=== PATIENT | female | born 1985 | race Caucasian/White ===

== ENCOUNTER 2016-11-14 22:29 | Inpatient (IN) | payer OTHER ==
[2016-11-14 23:08] LABS: % IMMATURE GRANULYOCYTES 0.9 % (0.0-1.1); ABSOLUTE IMMATURE GRANULOCYTES 0.08 10^3/uL (0.00-0.10); ABSOLUTE NRBC COUNT 0.02 10^3/uL (0-0.01); ADD DIFF? NO; ADD MORPH? NO; ADD SCAN? NO; ATYPICAL LYMPHOCYTE FLAG 0 (0-99); FRAGMENT RBC FLAG 0 (0-99); HEMATOCRIT 27.5 % (38.0-47.0); HEMOGLOBIN 8.9 g/dL (12.6-16.3); LEFT SHIFT FLG 0 (0-99); LIPEMIA HEMOLYSIS FLAG 80 (0-99); MEAN CELL HEMOGLOBIN 28.8 pg (27.9-34.1); MEAN CELL HEMOGLOBIN CONCENTR. 32.4 g/dL (32.4-36.7); NRBC-AUTO% 0.2 % (0.0-0.2); PLATELET CLUMPS FLAG 0 (0-99); PLATELET COUNT 265 10^3/uL (150-400); RED BLOOD CELL COUNT 3.09 10^6/uL (4.18-5.33); RED CELL DISTRIBUTION WIDTH 13.9 % (11.5-15.2)
[2016-11-14 23:14] LABS: ALANINE AMINOTRANSFERASE 24 IU/L (9-52); ASPARTATE AMINOTRANSFERASE 21 IU/L (14-46); BILIRUBIN,TOTAL 0.4 mg/dL (0.1-1.4); BILIRUBIN-CONJUGATED 0.3 mg/dL (0.0-0.5); BILIRUBIN-UNCONJUGATED 0.1 mg/dL (0.0-1.1); CREATININE 0.7 mg/dL (0.6-1.0); GLOMERULAR FILTRATION RATE > 60; LACTATE DEHYDROGENASE 444 IU/L (313-618); URIC ACID 4.9 mg/dL (2.5-6.8)
[2016-11-15] MEDS ORDERED: OLIVE OIL 118 ML BTL MISC PRN (00:23)
[2016-11-15] MEDS ORDERED: EPSOM SALT 454 GM TP PRN (00:23)
[2016-11-15] MEDS ORDERED: LR 1,000 ML IV PRN (00:23)
[2016-11-15] MEDS ORDERED: OXYTOCIN/RINGERS LACTATE 1,000 ML IV PRN (00:23)
[2016-11-15] MEDS ORDERED: LIDOCAINE 1% 30 ML SDV SC PRN (00:23)
[2016-11-15] MEDS ORDERED: TERBUTALINE SULFATE 1 MG/ML VIAL IV PRN (00:23)
[2016-11-15] MEDS ORDERED: LIDOCAINE 1% 30 ML SDV ONE ×3 (00:46→03:08)
[2016-11-15] MEDS ORDERED: OXYTOCIN 10 UNIT/ML VIAL ONE (00:47)
[2016-11-15] MEDS ORDERED: MISOPROSTOL 200 MCG TAB ONE (00:47)
[2016-11-15] MEDS: MISOPROSTOL 100 MCG TAB PO SCH ×4 (00:51→17:34)
--- NOTE | 2016-11-15 01:33 | GHP ---
[f rep st] PREOP HISTORY AND PHYSICAL DATE OF ADMISSION: 11/14/2016 ADMISSION DIAGNOSES: 1. Intrauterine at 39-1/7 weeks' gestation. 2. Preeclampsia. HISTORY OF PRESENT ILLNESS: The patient is a 31-year-old, 1, para 0, who is 39 weeks' gesta tion who was seen in the office yesterday for a routine OB visit and complained of significant incre ase in edema over the last week. She had blood pressures that were 130s over 80s. Preeclampsia lab s were obtained which were normal, and she is in the process of collecting a 24-hour urine protein. Patient has been checking her blood pressures at home for the last few weeks and her blood pressure s have normally been 120s to 130s over 60s to 70s. She checked her blood pressure tonight because s he was feeling heavy and not quite right, and her blood pressure was 142/85. The patient came in fo r evaluation. Her blood pressure on admission was 141/82. Repeat blood pressures have been high 13 0s over 60s. The patient has been requesting a 24-hour urine protein today and has collected only 2 00 cc total for the entire day. When she arrived to Labor and Delivery, she was only able to void a very small amount and 1+ protein was noted. A long discussion was had with the patient because marlon ravi is past 39 weeks and is having oliguria and 1 elevated blood pressure here and 1 elevated blood pressure at home. Decision was made to admit patient for induction of labor. A cervical exam was performed. Her cervix is long and closed, and she is not a candidate for Bustamante bulb placement, so s he will receive oral Cytotec overnight. PAST MEDICAL HISTORY: Questionable history of polycystic ovarian syndrome. History of pyelonephrit is x2. Psoriasis. MEDICATIONS: vitamins, DHA, metformin. PAST SURGICAL HISTORY: [place] tooth extraction. ALLERGIES: Codeine and erythromycin. SOCIAL HISTORY: The patient is single, but father of the baby is involved. 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 She denies tobacco, alcohol, or drug use. FAMILY MEDICAL HISTORY: Noncontributory. OBSTETRICAL/GYNECOLOGICAL HISTORY: Menarche age 14. Periods are irregular, lasting irregular lengt h. She is a 1, para 0. Current : Patient initiated care at 7 weeks 6 da ys at [facility]. She is dated by a 5-ihhl-1-day ultrasound which was not consistent with her last menstrual period. Otherwise, has been unremarkable with the exception of the in creased edema over the last few weeks. The patient does have a history of an abnormal Pap smear. C olposcopy was negative. She denies any history of any sexually transmitted diseases. REVIEW OF SYSTEMS: A 10-point review of systems is negative with the exception of mild headache whi ch was recently resolved and significant for lower extremity edema. She denies any loss of fluid or vaginal bleeding. There is good movement, and she is not having any contractions. PHYSICAL EXAMINATION: VITAL SIGNS: Stable. Her blood pressure on arrival was 141/82, 136/67, and 132/68. GENERAL APPEARANCE: Alert and oriented x3. PSYCHIATRIC: She has an appropriate affect. NECK: Supple. HEART: Her heart rate is regular/regular. LUNGS: Clear to auscultation bilaterall y. ABDOMEN: Gravid, nondistended, nontender. EXTREMITIES: Significant bilateral pitting edema. NEUROLOGIC: She has 2+ DTRs in the lower extremities bilaterally. CERVICAL EXAM: Cervix is long a nd closed. heart tracing is category 1. She is not having any contractions. Infant is in the vertex pre sentation. LABORATORIES: Blood type A positive, antibody screen negative. Rubella low positive. GBS negative. HBsAg negative. HIV negative. Her 50 g glucose was 123. The patient had a serum alpha fetoprotein which was negative and Verifi screen was negative. On patient's preeclampsia labs, her hemoglobin is 8.9, hematocrit is 27.5, platelets are 265. Her c reatinine is 0.7. Uric acid is 4.9. AST is 21, ALT is 24. ASSESSMENT AND PLAN: A 31-year-old, 1, para 0, at 39 weeks' gestation with preeclampsia and oliguria. Cervix is not favorable enough to place a Bustamante bulb, so she will be started on p.o. Cyt otec tonight. Patient will be observed closely and we will consider magnesium sulfate as needed. /[id number]/MODL
[2016-11-15] MEDS ORDERED: AMMONIA AROMATIC 1 EACH AMP IH ONE (03:07)
[2016-11-15] MEDS ORDERED: OLIVE OIL 118 ML BTL ONE (03:07)
[2016-11-15] MEDS ORDERED: TERBUTALINE SULFATE 1 MG/ML VIAL ONE (03:08)
[2016-11-15] MEDS ORDERED: ALTEPLASE 2 MG VIAL IVP PRN ×2 (10:03→10:07)
[2016-11-15 12:56] LABS: % IMMATURE GRANULYOCYTES 0.7 % (0.0-1.1); ABSOLUTE IMMATURE GRANULOCYTES 0.07 10^3/uL (0.00-0.10); ADD DIFF? NO; ADD MORPH? NO; ADD SCAN? NO; ATYPICAL LYMPHOCYTE FLAG 0 (0-99); FRAGMENT RBC FLAG 0 (0-99); HEMATOCRIT 29.1 % (38.0-47.0); HEMOGLOBIN 9.3 g/dL (12.6-16.3); LEFT SHIFT FLG 0 (0-99); LIPEMIA HEMOLYSIS FLAG 80 (0-99); MEAN CELL HEMOGLOBIN 28.6 pg (27.9-34.1); MEAN CELL VOLUME 89.5 fL (81.5-99.8); MEAN PLATELET VOLUME 11.5 fL (8.7-11.7); PLATELET CLUMPS FLAG 10 (0-99); PLATELET COUNT 265 10^3/uL (150-400); RED BLOOD CELL COUNT 3.25 10^6/uL (4.18-5.33); RED CELL DISTRIBUTION WIDTH 14.2 % (11.5-15.2)
[2016-11-15 13:20] LABS: ALANINE AMINOTRANSFERASE 24 IU/L (9-52); ASPARTATE AMINOTRANSFERASE 20 IU/L (14-46); BILIRUBIN,TOTAL 0.4 mg/dL (0.1-1.4); BILIRUBIN-CONJUGATED 0.2 mg/dL (0.0-0.5); BILIRUBIN-UNCONJUGATED 0.2 mg/dL (0.0-1.1); CREATININE 0.7 mg/dL (0.6-1.0); GLOMERULAR FILTRATION RATE > 60; LACTATE DEHYDROGENASE 461 IU/L (313-618)
--- NOTE | 2016-11-15 14:06 | OBPROG ---
OBG Progress Note Assessment/Plan: Assessment: Pt is 31 y/o @ 39 2/7 wks with preeclampsia, oliguria Plan: BPs are stable 130/70-80's, pt is asymptomatic at this time; will cont to closely monitor No need for mag sulfate at this time UO 250 cc over 6 hours, encourage to increase po hydration PIH labs this am are wnl; Pt has a PICC line in place Cervix is still closed and unfavorable, will try 3rd dose of PO Cytotec and reassess FHTs - Cat I tracing No pain with ctx's at this time Long discussion with pt that induction process may take 24-48 hours, and that induction may fail requiring ; she understands at this time 11/15/16 14:02 Subjective: Pt is eating a popsicle, no complaints. Denies any pain with her ctx's. Good FM noted. Denies any HAs, visual changes or RUQ pain. Objective: 11/15/16 12:34 11/15/16 12:34 Patient ABO/Rh A POSITIVE 11/14/16 22:50 Uric Acid 5.0 mg/dL (2.5-6.8) 11/15/16 12:34 Total Bilirubin 0.4 mg/dL (0.1-1.4) 11/15/16 12:34 Conjugated Bilirubin 0.2 mg/dL (0.0-0.5) 11/15/16 12:34 Unconjugated Bilirubin 0.2 mg/dL (0.0-1.1) 11/15/16 12:34 AST 20 IU/L (14-46) 11/15/16 12:34 ALT 24 IU/L (9-52) 11/15/16 12:34 Lactate Dehydrogenase 461 IU/L (313-618) 11/15/16 12:34 - SVE Dilation (cm): 0 Effacement (%): 75 Station: -3 Current Contraction Pattern: Irregular FHR (bpm): 130 FHR Pattern Variability: Moderate FHR Category: 1 Membranes: Intact - Physical Exam General Appearance: WD/WN, alert, no apparent distress Extremities: non-tender, swelling DTR- Lower Extremities: Plantar (R): 2+, Plantar (L): 3+ Neuro/Psych: alert, normal mood/affect, oriented x 3 ICD10 Worksheet Patient Problems: Problems Problem Status Onset Oliguria Acute Pre-eclampsia in third trimester Acute
[2016-11-15] MEDS: LR 1,000 ML IV SCH ×2 (14:15→21:57)
[2016-11-15] MEDS ORDERED: DINOPROSTONE 10 MG VAG SUPP VG ONE (17:30)
--- NOTE | 2016-11-15 17:43 | OBPROG ---
OBG Progress Note Assessment/Plan: Assessment: Pt is 31 y/o @ 39 2/7 wks with preeclampsia, oliguria Plan: BPs are stable 130/70-80's, pt is asymptomatic at this time; will cont to closely monitor No need for mag sulfate at this time UO 500 cc over last 10 hrs, encourage to increase po hydration, IVFs at 125 cc/ hr PIH labs this am are wnl; Pt has a PICC line in place Cervix is still closed and unfavorable, s/p PO Cytotec x3 Will continue to ripen cervix and place Cervidil x 12 hrs and reassess in am for richter balloon placement FHTs - Cat I tracing Pt is having discomfort with lower extremity swelling, will try SCDs 11/15/16 17:40 11/15/16 17:43 Subjective: Pt is uncomfortable with lower extremity swelling. Also has some cramping with ctx's. Good FM noted. Denies any HAs, visual changes or RUQ pain. Objective: 11/15/16 12:34 11/15/16 12:34 Patient ABO/Rh A POSITIVE 11/14/16 22:50 Uric Acid 5.0 mg/dL (2.5-6.8) 11/15/16 12:34 Total Bilirubin 0.4 mg/dL (0.1-1.4) 11/15/16 12:34 Conjugated Bilirubin 0.2 mg/dL (0.0-0.5) 11/15/16 12:34 Unconjugated Bilirubin 0.2 mg/dL (0.0-1.1) 11/15/16 12:34 AST 20 IU/L (14-46) 11/15/16 12:34 ALT 24 IU/L (9-52) 11/15/16 12:34 Lactate Dehydrogenase 461 IU/L (313-618) 11/15/16 12:34 - SVE Dilation (cm): 0 Effacement (%): 75 Station: -3 Current Contraction Pattern: Irregular FHR (bpm): 140 FHR Pattern Variability: Moderate FHR Category: 1 Membranes: Intact - Physical Exam General Appearance: WD/WN, alert, no apparent distress Extremities: non-tender, swelling DTR- Lower Extremities: Plantar (R): 2+, Plantar (L): 2+ Neuro/Psych: alert, normal mood/affect, oriented x 3 ICD10 Worksheet Patient Problems: Problems Problem Status Onset Oliguria Acute Pre-eclampsia in third trimester Acute
[2016-11-15] MEDS ORDERED: diphenhydrAMINE 25 MG CAP PO PRN (20:17)
[2016-11-15] MEDS ORDERED: fentaNYL 2MCG/ML/BUP 0.1% RTU 100 ML BAG EP ONE (23:19)
[2016-11-15] MEDS ORDERED: BUPIVACAINE 0.25% 30 ML SDV ONE (23:20)
[2016-11-15] MEDS ORDERED: PHENYLEPHRINE HCL 100 MCG/ML SYR ONE (23:20)
[2016-11-15] MEDS ORDERED: fentaNYL 100 MCG/2 ML INJ ONE (23:21)
[2016-11-15] MEDS: ACETAMINOPHEN 500 MG TAB PO PRN (23:25)
[2016-11-16] MEDS ORDERED: PHENYLEPHRINE HCL 100 MCG/ML SYR IVP PRN (00:34)
[2016-11-16] MEDS ORDERED: ONDANSETRON 4 MG/2 ML VIAL IVP PRN (00:34)
--- NOTE | 2016-11-16 00:40 | PREANESOB ---
Obstetric Pre-Anesthesia Info - General Info Proposed Procedure: Labor and delivery : 1 Para: 0 WBD: 39 - Info Status: Full Term Monitors: External FHR Baseline (bpm): 140 FHR Pattern: Reassuring - Labor Status Cervical Dilation per last OB SVE: 0, 1 Station per last OB SVE: -3 PIH: Mild Indications for Labor Analgesia: BP Control, Pain Control Labor Epidural: Proposed Anesthesia ROS: Mild preeclampsia. Allergies/Adverse Reactions: Allergy/AdvReac Type Severity Reaction Status Date / Time codeine Allergy Dyspnea Verified 11/14/16 22:39 erythromycin base Allergy Rash Verified 11/14/16 22:39 Home Medications: Medication Instructions Recorded Iron 65 mg PO DAILY 11/14/16 1 tab PO DAILY 11/14/16 Visit Medications: Generic Name Dose Route Start Last Admin Trade Name Freq PRN Reason Stop Dose Admin Acetaminophen 1,000 mg 11/15/16 17:33 11/15/16 23:25 Tylenol PO 05/14/17 17:32 1,000 mg Q6HRS PRN Administration Pain, Mild/Fever, Can Take PO Alteplase, Recombinant 2 mg 11/15/16 10:03 Cathflo Activase IVP 05/14/17 10:02 PRN PRN Per PICC line policy Diphenhydramine HCl 25 mg 11/15/16 20:17 Benadryl PO 05/14/17 20:16 Q6 PRN INSOMNIA OR ALLERGIES Lactated Ringer's 1,000 mls @ 0 mls/hr 11/15/16 00:23 Lr IV 05/14/17 00:22 PRN PRN SEE PROTOCOL CONDITIONS Protocol Per Protocol Oxytocin/Lactated Ringer's 1,000 mls @ 150 mls/hr 11/15/16 00:23 Pitocin 20 Units/Lr (Premix) IV PRN PRN Post- bleeding Lactated Ringer's 1,000 mls @ 125 mls/hr 11/15/16 14:30 11/15/16 21:57 Lr IV 05/14/17 14:29 1,000 mls CONT ANUJA Administration Ibuprofen 600 mg 11/15/16 00:23 Motrin PO 05/14/17 00:22 Q6HRS PRN post , inflammation Lidocaine HCl 30 ml 11/15/16 00:23 Lidocaine Hcl 1% SC 05/14/17 00:22 ONCE PRN Episiotomy Magnesium Sulfate 454 gm 11/15/16 00:23 Epsom Salt TP 05/14/17 00:22 PRN PRN perineal discomfort [place] Oil 118 ml 11/15/16 00:23 Sweet Oil MISC 05/14/17 00:22 ONCE PRN preneal massage Terbutaline Sulfate 0.25 mg 11/15/16 00:23 Brethine IV 05/14/17 00:22 ONCE PRN Tachysystole Discontinued Medications Generic Name Dose Route Start Last Admin Trade Name Frebhupinder PRN Reason Stop Dose Admin Alteplase, Recombinant 2 mg 11/15/16 10:07 Cathflo Activase IVP 05/14/17 10:06 PRN PRN Per PICC line policy Ammonia (Aromatic Spirit) Confirm 11/15/16 03:07 Ammonia Aromatic Administered 11/15/16 03:08 Dose 1 each IH .STK-MED ONE Bupivacaine HCl Confirm 11/15/16 23:20 Sensorcaine 0.25% Sdv Administered 11/15/16 23:21 Dose 30 ml .ROUTE .STK-MED ONE Dinoprostone 10 mg 11/15/16 17:30 11/15/16 17:26 Cervidil VG 11/15/16 17:31 10 mg ONCE ONE Administration Fentanyl Confirm 11/15/16 23:21 Sublimaze Administered 11/15/16 23:22 Dose 100 mcg .ROUTE .STK-MED ONE Fentanyl/Bupivacaine HCl Confirm 11/15/16 23:19 Fentanyl/Bupivacaine/Ns 2 Mcg/Ml 0.1% (Premix Administered 11/15/16 23:20 Dose 100 ml EP .STK-MED ONE Lidocaine HCl Confirm 11/15/16 00:46 Lidocaine Hcl 1% Administered 11/15/16 00:47 Dose 30 ml .ROUTE .STK-MED ONE Lidocaine HCl Confirm 11/15/16 03:07 Lidocaine Hcl 1% Administered 11/15/16 03:08 Dose 30 ml .ROUTE .STK-MED ONE Lidocaine HCl Confirm 11/15/16 03:08 Lidocaine Hcl 1% Administered 11/15/16 03:09 Dose 30 ml .ROUTE .STK-MED ONE Misoprostol 25 mcg 11/15/16 02:00 11/15/16 17:34 Cytotec PO 05/14/17 01:59 Not Given Q4 ANUJA Misoprostol Confirm 11/15/16 00:47 Cytotec Administered 11/15/16 00:48 Dose 1,000 mcg .ROUTE .STK-MED ONE [place] Oil Confirm 11/15/16 03:07 Sweet Oil Administered 11/15/16 03:08 Dose 118 ml .ROUTE .STK-MED ONE Oxytocin Confirm 11/15/16 00:47 Pitocin Administered 11/15/16 00:48 Dose 40 unit .ROUTE .STK-MED ONE Phenylephrine HCl Confirm 11/15/16 23:20 Brandon-Synephrine Administered 11/15/16 23:21 Dose 1,000 mcg .ROUTE .STK-MED ONE Terbutaline Sulfate Confirm 11/15/16 03:08 Brethine Administered 11/15/16 03:09 Dose 1 mg .ROUTE .STK-MED ONE - Anesthesia History Response to Local Anesthetics: Normal - Social History Substance Use/Abuse: Denies - Focused Exam Blood Pressure: 140/67 Heart Rate: 87 Respiratory Rate: 16 Height/Weight (Nursing): Height 160.02 cm Weight 95.254 kg Physical Exam: Significant for marked peripheral edema. ASA Status: II Labs: 11/15/16 12:34 11/15/16 12:34 Patient ABO/Rh A POSITIVE 11/14/16 22:50 Uric Acid 5.0 mg/dL (2.5-6.8) 11/15/16 12:34 Total Bilirubin 0.4 mg/dL (0.1-1.4) 11/15/16 12:34 Conjugated Bilirubin 0.2 mg/dL (0.0-0.5) 11/15/16 12:34 Unconjugated Bilirubin 0.2 mg/dL (0.0-1.1) 11/15/16 12:34 AST 20 IU/L (14-46) 11/15/16 12:34 ALT 24 IU/L (9-52) 11/15/16 12:34 Lactate Dehydrogenase 461 IU/L (313-618) 11/15/16 12:34 - Plan Anesthetic Plan: CSE Consent Signed and on Chart: Yes Patient/Guardian Understands and Agrees to Plan: Yes
--- NOTE | 2016-11-16 00:55 | POSTANESTH ---
Post Anesthetic Evaluation Cardiovascular Status: Normal, Stable Respiratory Status: Normal, Stable Level of Consciousness/Mental Status: Can Participate in Eval Pain Control: Adequate, Prn Tx Ordered Nausea/Vomiting Control: Adequate, Prn Tx Ordered Complications Possibly Related to Anesthesia: None Noted (Tolerated CSE okay, stable, comfortable.)
[2016-11-16] MEDS ORDERED: LR 500 ML IV SCH (01:00)
[2016-11-16] MEDS ORDERED: fentaNYL 2MCG/ML/BUP 0.1% RTU 100 ML EP SCH (01:00)
[2016-11-16] MEDS: LR 1,000 ML IV SCH (06:06)
[2016-11-16] MEDS ORDERED: BUPIVACAINE 0.25% 30 ML SDV ONE (07:40)
[2016-11-16] MEDS ORDERED: fentaNYL 100 MCG/2 ML INJ ONE ×2 (07:41→07:51)
--- NOTE | 2016-11-16 08:21 | OBPROG ---
OBG Progress Note Assessment/Plan: Assessment: Pt is 31 y/o @ 39 3/7 wks with preeclampsia, oliguria Plan: Pt is uncomfortable, no relief with Epidural; Kulwinder will replace epidural; Fentanyl as needed BPs are stable 130-140/70-80's, pt is asymptomatic at this time; will cont to closely monitor No need for mag sulfate at this time UO <300 cc over last 12 hrs, cont to monitor; will start Lasix pp Pt has a PICC line in place and SCDs on There has been a change in cervix; s/p po Cytotec x 3 and Cervidil (pulled at 0530) FHTs - Cat II tracing with early decels and intermittent variable decels 11/16/16 08:16 Subjective: Pt is c/o pain with her ctx's, yana on R side which radiates to her back. Epidural in place. Denies any HAs, visual changes or RUQ pain. Objective: 11/15/16 12:34 11/15/16 12:34 Patient ABO/Rh A POSITIVE 11/14/16 22:50 Uric Acid 5.0 mg/dL (2.5-6.8) 11/15/16 12:34 Total Bilirubin 0.4 mg/dL (0.1-1.4) 11/15/16 12:34 Conjugated Bilirubin 0.2 mg/dL (0.0-0.5) 11/15/16 12:34 Unconjugated Bilirubin 0.2 mg/dL (0.0-1.1) 11/15/16 12:34 AST 20 IU/L (14-46) 11/15/16 12:34 ALT 24 IU/L (9-52) 11/15/16 12:34 Lactate Dehydrogenase 461 IU/L (313-618) 11/15/16 12:34 Temp Pulse Resp BP Pulse Ox 87 16 140/67 H 11/16/16 00:53 11/16/16 00:53 11/16/16 00:53 - SVE Dilation (cm): 6 Effacement (%): 90 Station: -2 (asynclitic; suspect OP) Current Contraction Pattern: Regular FHR (bpm): 140 FHR Pattern Variability: Moderate FHR Category: 2 (Eary decels and intermittent variable decels noted) Membranes: SROM Amniotic Fluid Color: Meconium Stained-Light - Physical Exam General Appearance: moderate distress Respiratory: lungs clear Extremities: swelling DTR- Lower Extremities: Plantar (R): 1+, Plantar (L): 1+ ICD10 Worksheet Patient Problems: Problems Problem Status Onset Oliguria Acute Pre-eclampsia in third trimester Acute
[2016-11-16] MEDS ORDERED: fentaNYL 100 MCG/2 ML INJ IVP ONE (08:30)
[2016-11-16] MEDS: ACETAMINOPHEN 500 MG TAB PO PRN (11:48)
--- NOTE | 2016-11-16 12:57 | OBPROG ---
OBG Progress Note Assessment/Plan: Assessment: Pt is 31 y/o @ 39 3/7 wks with preeclampsia, oliguria Plan: Pt is starting to get uncomfortable again, minimal relief with second epidural BPs are stable 130-150/70-90's, will cont to closely monitor UO is <50 cc/6 hrs Tmax 100.0; Pt given Tylenol FHTs - Cat II tracing with early decels and intermittent variable decels Will check PIH labs secondary to increased swelling, and worsening oliguria Will start pushing with pt 11/16/16 13:00 Subjective: Pt is starting to have pain with ctx's again on R side radiating to her back, this is her second epidural. Feeling nauseous. No HAs, visual changes or RUQ pain. Objective: 11/15/16 12:34 11/15/16 12:34 Patient ABO/Rh A POSITIVE 11/14/16 22:50 Uric Acid 5.0 mg/dL (2.5-6.8) 11/15/16 12:34 Total Bilirubin 0.4 mg/dL (0.1-1.4) 11/15/16 12:34 Conjugated Bilirubin 0.2 mg/dL (0.0-0.5) 11/15/16 12:34 Unconjugated Bilirubin 0.2 mg/dL (0.0-1.1) 11/15/16 12:34 AST 20 IU/L (14-46) 11/15/16 12:34 ALT 24 IU/L (9-52) 11/15/16 12:34 Lactate Dehydrogenase 461 IU/L (313-618) 11/15/16 12:34 Temp Pulse Resp BP Pulse Ox 87 16 140/67 H 11/16/16 00:53 11/16/16 00:53 11/16/16 00:53 - SVE Dilation (cm): 10 Effacement (%): 100 Station: +1 Current Contraction Pattern: Regular FHR (bpm): 150 FHR Pattern Variability: Moderate Membranes: SROM Amniotic Fluid Color: Meconium Stained-Light - Physical Exam General Appearance: mild distress Respiratory: lungs clear Extremities: swelling ICD10 Worksheet Patient Problems: Problems Problem Status Onset Oliguria Acute Pre-eclampsia in third trimester Acute
[2016-11-16 13:33] LABS: ADD DIFF? NO; ADD MORPH? NO; ADD SCAN? NO
[2016-11-16 13:36] LABS: ABSOLUTE IMMATURE GRANULOCYTES 0.25 10^3/uL (0.00-0.10); ATYPICAL LYMPHOCYTE FLAG 0 (0-99); FRAGMENT RBC FLAG 0 (0-99); HEMATOCRIT 29.9 % (38.0-47.0); HEMOGLOBIN 9.6 g/dL (12.6-16.3); LEFT SHIFT FLG 20 (0-99); LIPEMIA HEMOLYSIS FLAG 80 (0-99); MEAN CELL HEMOGLOBIN 28.3 pg (27.9-34.1); MEAN CELL HEMOGLOBIN CONCENTR. 32.1 g/dL (32.4-36.7); MEAN CELL VOLUME 88.2 fL (81.5-99.8); PLATELET CLUMPS FLAG 10 (0-99); PLATELET COUNT 258 10^3/uL (150-400); RED BLOOD CELL COUNT 3.39 10^6/uL (4.18-5.33); RED CELL DISTRIBUTION WIDTH 14.4 % (11.5-15.2)
[2016-11-16 13:48] LABS: ALANINE AMINOTRANSFERASE 27 IU/L (9-52); ASPARTATE AMINOTRANSFERASE 22 IU/L (14-46); BILIRUBIN,TOTAL 0.6 mg/dL (0.1-1.4); BILIRUBIN-CONJUGATED 0.3 mg/dL (0.0-0.5); BILIRUBIN-UNCONJUGATED 0.3 mg/dL (0.0-1.1); CREATININE 0.9 mg/dL (0.6-1.0); GLOMERULAR FILTRATION RATE > 60; LACTATE DEHYDROGENASE 560 IU/L (313-618); URIC ACID 5.4 mg/dL (2.5-6.8)
[2016-11-16] MEDS ORDERED: LR 500 ML IV PRN (15:19)
[2016-11-16] MEDS ORDERED: OXYTOCIN/RINGERS LACTATE 500 ML IV SCH (15:30)
[2016-11-16 16:27] LABS: BASE EXCESS CORD -6.5 mEq/L (-13.6--3.2); CORD BLOOD PCO2 48.3 mmHg (37-60); PH ARTERIAL CORD BLOOD 7.25 (7.10-7.37)
[2016-11-16 16:28] LABS: PH VENOUS CORD BLOOD 7.3 (7.20-7.42)
[2016-11-16] MEDS ORDERED: SIMETHICONE 80 MG TAB CHEW PO PRN (16:46)
[2016-11-16] MEDS ORDERED: HYDROCORTISONE 0.5% CREAM TP PRN (16:46)
[2016-11-16] MEDS ORDERED: DOCUSATE SODIUM 100 MG CAP PO PRN (16:46)
[2016-11-16] MEDS ORDERED: ACETAMINOPHEN 500 MG TAB PO PRN (16:48)
[2016-11-16] MEDS ORDERED: FUROSEMIDE 40 MG TAB PO ONE (16:48)
[2016-11-16] MEDS ORDERED: MAGNESIUM HYDROXIDE 30 ML UDCUP PO PRN (16:51)
[2016-11-16] MEDS ORDERED: LACTULOSE 20 GM/30 ML UDCUP PO PRN (16:51)
[2016-11-16] MEDS ORDERED: BISACODYL 10 MG SUPP PR PRN (16:51)
[2016-11-16] MEDS ORDERED: POLYETHYLENE GLYCOL 3350 17 GM PKT PO PRN (16:51)
--- NOTE | 2016-11-16 16:57 | OBPROC ---
- Labor and Delivery Onset of Contractions Date: 11/16/16 Onset of Contractions Time: 20:10 Onset of Contractions Type: Induced Rupture of Membranes Date: 11/16/16 Rupture of Membranes Time: 20:10 Rupture of Membranes Type: Spontaneous Amniotic Fluid Color: Meconium Stained-Light Dilation Complete Time: 12:41 Delivery Type: Vacuum (Applied at +3 station, OA presentation x 2 ctx's for duration of 5 min (7920-4848) with no pop-offs; adequate pressures throughout. Removed and pt pushed to deliver .) Placenta Delivery Date: 11/16/16 Placenta Delivery Time: 16:15 Episiotomy/Laceration: 2nd Degree Repair: 3-0, Vicryl EBL: 350 Complications: Nuchal Cord (Very tight; cut on perineum) Cord Gases: Cord Gases Cord Blood PCO2 48.3 mmHg (37-60) 11/16/16 16:11 Cord Base Excess -6.5 mEq/L (-13.6--3.2) 11/16/16 16:11 Cord ABG pH 7.25 (7.10-7.37) 11/16/16 16:11 Cord VBG pH 7.30 (7.20-7.42) 11/16/16 16:11 - Medications Labor Augmentation/Induction Meds Used: Misoprostol (x 2 doses orally), Cervadil Labor Augmentation/Induction Indication: Medical (Preeclampsia) Anesthesia: Epidural (x2) - Info A Delivery Date: 11/16/16 Delivery Time: 16:11 Sex of Infant: Male Score (1 Min): 2 Score (5 Min): 7 ("Cruz")
[2016-11-16] MEDS: IBUPROFEN 600 MG TAB PO PRN ×2 (17:13→23:06)
[2016-11-16] MEDS: SENNOSIDES/DOCUSATE SODIUM TAB PO SCH (22:04)
[2016-11-16] MEDS: HYDROCODONE/APAP 5/325 TAB PO PRN ×2 (22:17→23:06)
[2016-11-17] MEDS: HYDROCODONE/APAP 5/325 TAB PO PRN ×2 (03:51→15:47)
[2016-11-17] MEDS: IBUPROFEN 600 MG TAB PO PRN ×4 (05:05→22:44)
--- NOTE | 2016-11-17 10:09 | OBPROG ---
OBG Progress Note Assessment/Plan: Assessment: 1) s/p VAVD PPD # 1 - pt is stable 2) Preeclampsia, oliguria - improved, BPs stable 3) Anemia - pt is asymptomatic Plan: Continue routine pp care Will remove richter and IV this am BPs stable 120-130/60-80's, cont to monitor Will start Bifera BID secondary to anemia Diuresing well, s/p Lasix Encourage ambulation Increase po fluids Plan for d/c home in am 5/8 11/17/16 10:03 11/17/16 10:12 Subjective: Pt seen and examined. She is sore and tired, but feeling better. Pain controlled with [place]. She has been OOB, renita regular diet, richter in place, passing flatus. No BM. Denies any HAs, visual changes or RUQ pain. Moderate lochia. Having some difficulty with BF. Objective: 11/16/16 13:20 11/16/16 13:20 Patient ABO/Rh A POSITIVE 11/14/16 22:50 Uric Acid 5.4 mg/dL (2.5-6.8) 11/16/16 13:20 Total Bilirubin 0.6 mg/dL (0.1-1.4) 11/16/16 13:20 Conjugated Bilirubin 0.3 mg/dL (0.0-0.5) 11/16/16 13:20 Unconjugated Bilirubin 0.3 mg/dL (0.0-1.1) 11/16/16 13:20 AST 22 IU/L (14-46) 11/16/16 13:20 ALT 27 IU/L (9-52) 11/16/16 13:20 Lactate Dehydrogenase 560 IU/L (313-618) 11/16/16 13:20 Temp Pulse Resp BP Pulse Ox 36.8 C 69 16 138/79 H 95 11/17/16 09:26 11/17/16 09:26 11/17/16 09:26 11/17/16 09:26 11/16/16 23:46 Uterine Position/Fundal Height: Umbilicus -2 Uterine Tone: Firm - Physical Exam General Appearance: WD/WN, alert, no apparent distress Respiratory: lungs clear, normal breath sounds Cardiac/Chest: regular rate, rhythm Abdomen: normal bowel sounds, non-tender, soft, flatus (+) Genitourinary: laceration (intact; +edema), lochia (moderate) Extremities: non-tender, swelling DTR- Lower Extremities: Plantar (R): 2+, Plantar (L): 2+ Neuro/Psych: alert, normal mood/affect, oriented x 3 ICD10 Worksheet Patient Problems: Problems Problem Status Onset Vacuum extraction, delivered, current hospitalization Acute Oliguria Acute Pre-eclampsia in third trimester Acute
[2016-11-17] MEDS: IRON POLYSAC/IRON HEME 28 MG TAB PO SCH ×2 (11:17→22:44)
[2016-11-17] MEDS: SENNOSIDES/DOCUSATE SODIUM TAB PO SCH ×2 (11:18→22:44)
[2016-11-18] MEDS: HYDROCODONE/APAP 5/325 TAB PO PRN ×2 (03:53→18:03)
--- NOTE | 2016-11-18 07:59 | SOAPPROG ---
SOAP Progress Note Assessment/Plan: Assessment:elevated bp denies PIH symptoms ok baby crying alot with nipples intact ff@u scant rubra lochia calf and pedal edema facial edema voiding without difficulty Picc line to remain until tomorrow nurse notified perineal swelling small encouraged ice and tucks to assist Plan:will keep patient another day. Discussed reasoning with patient, assistance again today 11/18/16 07:56 Subjective: Doing OK. Denies PIH symptoms. Looks tired today Objective: Vital Signs Temp Pulse Resp BP Pulse Ox 37.1 C 69 16 144/72 H 94 11/17/16 21:30 11/17/16 09:26 11/17/16 21:30 11/17/16 21:30 11/17/16 21:30 Laboratory Results 11/16/16 13:20 11/16/16 13:20 11/17/16 11/18/16 11/19/16 05:59 05:59 05:59 Intake Total 1860 800 Output Total 1615 9270 Balance 245 -4880 - Time Spent With Patient Time Spent With Patient: 20 minutes - Pending Discharge Pending Discharge Within 24 Hours: Yes Pending Discharge Date: 11/19/16 Pending Discharge Time: 11:00 Physical Exam - Physical Exam General Appearance: WD/WN, alert, no apparent distress EENT: other (denies blurry vision/ and headache) Abdomen: other (ff@u) Pelvic Exam: vaginal bleeding (scant rubra lochia), other (perineum approx/ small amount of swelling) Skin: normal color, warm/dry Extremities: normal range of motion, pedal edema, swelling (4+ bilaterally low extremitys and face), Aline's sign (negative bilaterally) Neuro/Psych: no motor/sensory deficits, alert, normal mood/affect, oriented x 3 ICD10 Worksheet Patient Problems: Problems Problem Status Onset Vacuum extraction, delivered, current hospitalization Acute Oliguria Acute Pre-eclampsia in third trimester Acute
[2016-11-18] MEDS: SENNOSIDES/DOCUSATE SODIUM TAB PO SCH ×2 (08:27→20:41)
[2016-11-18] MEDS: IRON POLYSAC/IRON HEME 28 MG TAB PO SCH ×2 (08:28→20:41)
[2016-11-18] MEDS: IBUPROFEN 600 MG TAB PO PRN ×2 (08:28→18:03)
[2016-11-19] MEDS: IBUPROFEN 600 MG TAB PO PRN ×3 (00:15→13:59)
--- NOTE | 2016-11-19 08:28 | OBPROG ---
OBG Progress Note Assessment/Plan: Assessment: 1) s/p VAVD PPD # 3 - pt is stable 2) Preeclampsia, oliguria - resolved; BPs stable 120-140/70's 3) Anemia - pt is asymptomatic Plan: Plan for d/c home today PICC line to be removed prior to d/c Instructions reviewed with pt Rx given for [place] and Motrin Pelvic rest Cont PNV, iron and stool softener RTC in 4 and 6 weeks 11/19/16 08:25 Subjective: Pt seen and examined. Doing better, no complaints. Minimal cramping. Moderate lochia. Ruddy reg diet, voiding, passing flatus, +BMs. She is pumping-to see today. Denies any HAs, visual changes or RUQ pain. Wants to go home today. Objective: 11/16/16 13:20 11/16/16 13:20 Patient ABO/Rh A POSITIVE 11/14/16 22:50 Uric Acid 5.4 mg/dL (2.5-6.8) 11/16/16 13:20 Total Bilirubin 0.6 mg/dL (0.1-1.4) 11/16/16 13:20 Conjugated Bilirubin 0.3 mg/dL (0.0-0.5) 11/16/16 13:20 Unconjugated Bilirubin 0.3 mg/dL (0.0-1.1) 11/16/16 13:20 AST 22 IU/L (14-46) 11/16/16 13:20 ALT 27 IU/L (9-52) 11/16/16 13:20 Lactate Dehydrogenase 560 IU/L (313-618) 11/16/16 13:20 Temp Pulse Resp BP Pulse Ox 36.8 C 87 18 138/74 H 93 11/19/16 00:05 11/19/16 05:30 11/19/16 05:30 11/19/16 05:30 11/19/16 00:05 Uterine Position/Fundal Height: Umbilicus -2 Uterine Tone: Firm - Physical Exam General Appearance: WD/WN, alert, no apparent distress Respiratory: lungs clear, normal breath sounds Cardiac/Chest: regular rate, rhythm Abdomen: normal bowel sounds, non-tender, soft, flatus (+) Genitourinary: laceration (intact), lochia (moderate) Extremities: normal inspection, swelling DTR- Lower Extremities: Plantar (R): 2+, Plantar (L): 2+ Neuro/Psych: alert, normal mood/affect, oriented x 3 ICD10 Worksheet Patient Problems: Problems Problem Status Onset Vacuum extraction, delivered, current hospitalization Acute Oliguria Acute Pre-eclampsia in third trimester Acute
[2016-11-19 10:08] VITALS: BP 142/90; PULSE 91; RESP 16; TEMP 98; O2SAT 96
[2016-11-19] MEDS: IRON POLYSAC/IRON HEME 28 MG TAB PO SCH (13:59)
[2016-11-19] MEDS: SENNOSIDES/DOCUSATE SODIUM TAB PO SCH (13:59)
== END 2016-11-19 16:20 | disposition home or self-care (01) | DRG 774 ==
LOC: FLD 22:29 → OBSVTOIN 11-15 17:40 → FOB 11-17 21:49
PROVIDERS: ADMIT Obstetrics & Gynecology; ATTEND Obstetrics & Gynecology
PROC: 02HV33Z Insertion of Infusion Device into Superior Vena Cava, Percutaneous Approach (ICD-10-PCS; 2016-11-15)
PROC: 10D07Z6 Extraction of Products of Conception, Vacuum, Via Natural or Artificial Opening (ICD-10-PCS; principal; 2016-11-16)
PROC: 0KQM0ZZ Repair Perineum Muscle, Open Approach (ICD-10-PCS; principal; 2016-11-16)
PROC: 3E0P7GC Introduction of Other Therapeutic Substance into Female Reproductive, Via Natural or Artificial Opening (ICD-10-PCS; principal; 2016-11-16)
DX: O14.93 Unspecified pre-eclampsia, third trimester (principal); O70.1 Second degree perineal laceration during delivery; O69.1XX0 Labor and delivery complicated by cord around neck, with compression, not applicable or unspecified; O26.833 Pregnancy related renal disease, third trimester; O90.81 Anemia of the puerperium; O77.0 Labor and delivery complicated by meconium in amniotic fluid; Z3A.39 39 weeks gestation of pregnancy; Z37.0 Single live birth
CPT/HCPCS: C1751; G0378; J2370; J2590; J3010; J3105

== ENCOUNTER 2016-11-23 18:33 | Observation (INO) | payer OTHER ==
--- NOTE | 2016-11-23 19:16 | OBPROG ---
OBG Progress Note Assessment/Plan: Assessment: denies pih symptoms elevated bp voiding without difficulty pain well managed consult with dr. weinstein for plan of care Plan:pih labs 11/23/16 19:09 Subjective: denies PIH symptoms. BP elevated at home. Voiding without difficulty. Pain well managed. well. - Physical Exam General Appearance: WD/WN, alert, no apparent distress Respiratory: chest non-tender, lungs clear, normal breath sounds Cardiac/Chest: regular rate, rhythm Abdomen: normal bowel sounds Membranes: Intact Extremities: normal range of motion, Aline's sign (negative bilaterally) DTR- Lower Extremities: Knee (R): 1+, Knee (L): 1+ (no clonus) Skin: normal color, warm/dry Neuro/Psych: no motor/sensory deficits, alert, normal mood/affect, oriented x 3 ICD10 Worksheet Patient Problems: Problems Problem Status Onset Oliguria Acute Pre-eclampsia in third trimester Acute Vacuum extraction, delivered, current hospitalization Acute
[2016-11-23 19:17] LABS: ABSOLUTE NRBC COUNT 0.04 10^3/uL (0-0.01); ADD DIFF? YES; ADD MORPH? NO; ADD SCAN? NO; ATYPICAL LYMPHOCYTE FLAG 30 (0-99); FRAGMENT RBC FLAG 0 (0-99); HEMATOCRIT 26.8 % (38.0-47.0); HEMOGLOBIN 8.4 g/dL (12.6-16.3); LEFT SHIFT FLG 20 (0-99); LIPEMIA HEMOLYSIS FLAG 80 (0-99); MEAN CELL HEMOGLOBIN 28.9 pg (27.9-34.1); MEAN CELL HEMOGLOBIN CONCENTR. 31.3 g/dL (32.4-36.7); MEAN CELL VOLUME 92.1 fL (81.5-99.8); MEAN PLATELET VOLUME 9.4 fL (8.7-11.7); NRBC-AUTO% 0.4 % (0.0-0.2); PLATELET CLUMPS FLAG 10 (0-99); PLATELET COUNT 378 10^3/uL (150-400); RED BLOOD CELL COUNT 2.91 10^6/uL (4.18-5.33); RED CELL DISTRIBUTION WIDTH 15.9 % (11.5-15.2)
[2016-11-23 19:36] LABS: ALANINE AMINOTRANSFERASE 37 IU/L (9-52); ASPARTATE AMINOTRANSFERASE 22 IU/L (14-46); BILIRUBIN,TOTAL 0.5 mg/dL (0.1-1.4); BILIRUBIN-CONJUGATED 0.3 mg/dL (0.0-0.5); BILIRUBIN-UNCONJUGATED 0.2 mg/dL (0.0-1.1); CREATININE 0.7 mg/dL (0.6-1.0); GLOMERULAR FILTRATION RATE > 60; LACTATE DEHYDROGENASE 778 IU/L (313-618); PLATELET ESTIMATE ADEQUATE (ADEQ); URIC ACID 5.3 mg/dL (2.5-6.8)
[2016-11-23 19:42] LABS: HYPOCHROMIA 1+; KERATOCYTES 1+; MICROCYTES 1+; POLYCHROMASIA 2+
[2016-11-23] MEDS ORDERED: LABETALOL HCL 200 MG TAB PO ONE (19:47)
--- NOTE | 2016-11-23 19:53 | GHP ---
[f rep st] HISTORY AND PHYSICAL DATE OF ADMISSION: 11/23/2016 On 11/23/2016, the patient called with complaint of elevated blood pressures from home. Delivered her baby a week ago, a week from today. Still having some pretty high blood pressures per patient complaint. Denies PIH symptoms after getting here to Labor and Delivery. Blood pressures are elevated 150/80, 150s/90s, 155/90s. Denies, like I said, PIH symptoms. States voiding routinely quantity sufficient yellow urine, passing gas, minimal bleeding, occasionally using Sayre for pain relief, routinely taking ibuprofen to assist with pain. Patient states without any difficulty, and today the blood pressures have been the highest. MEDICAL HISTORY: PCOS with use of metformin, pyelonephritis in 2004 and 2007, history of psoriasis. SURGICAL HISTORY: Nicholls teeth extraction. FAMILY HISTORY: Noncontributory. LABS: Patient is A positive, antibody negative. Hepatitis negative. HIV negative. RPR nonreactive. SOCIAL HISTORY: Patient is common law. No alcohol history. The patient denies drug use. MEDICATIONS: Medications being utilized: vitamins and iron. Denies high blood pressure medications routinely since delivery. PHYSICAL ASSESSMENT: GENERAL: Patient is awake, alert, oriented x3. LUNGS: Clear bilaterally. ABDOMEN: Bowel sounds are positive in all 4 quadrants. EXTREMITIES: DTRs are 1+ bilaterally and no clonus. Homans sign is negative bilaterally. The patient denies, like I said, any PIH symptoms. No headache, no blurry vision, no spots, no epigastric pain. The patient has minimal pedal edema. PLAN OF CARE: PI labs. Consult Dr. Marta Velasco as needed for plan of care. addendum pi labs wnl plan to begin labetolol 20mmg po bid. Observe for several hours after the first dose to observe serial BPS after meds /[id number]/MODL MTDD
[2016-11-23 19:57] VITALS: BP 149/81; PULSE 83
--- NOTE | 2016-11-23 21:54 | OBPROG ---
OBG Progress Note Assessment/Plan: Assessment: denies pih symptoms elevated bp better after labetolol x2 bp 1h aprt after labetolol 123/70's 134/77 voiding without difficulty pain well managed parameters gien 120/80 or less do not taken med call the office to speak to nurse or physician consult with dr. weinstein for plan of care Plan:discharged to home with instructions fu friday or friday in the office verbalized understanding of the POC 11/23/16 19:09 11/23/16 21:52 Subjective: Feeling ok denies difficulties Objective: 11/23/16 19:00 11/23/16 19:00 Uric Acid 5.3 mg/dL (2.5-6.8) 11/23/16 19:00 Total Bilirubin 0.5 mg/dL (0.1-1.4) 11/23/16 19:00 Conjugated Bilirubin 0.3 mg/dL (0.0-0.5) 11/23/16 19:00 Unconjugated Bilirubin 0.2 mg/dL (0.0-1.1) 11/23/16 19:00 AST 22 IU/L (14-46) 11/23/16 19:00 ALT 37 IU/L (9-52) 11/23/16 19:00 Lactate Dehydrogenase 778 IU/L (313-618) H 11/23/16 19:00 Temp Pulse Resp BP Pulse Ox 83 149/81 H 11/23/16 19:56 11/23/16 19:56 ICD10 Worksheet Patient Problems: Problems Problem Status Onset Oliguria Acute Pre-eclampsia in third trimester Acute Vacuum extraction, delivered, current hospitalization Acute
== END 2016-11-23 22:01 | disposition home or self-care (01) ==
LOC: FLD 18:33
PROVIDERS: ADMIT Advanced Practice Midwife; ATTEND Obstetrics & Gynecology
DX: O13.5 Gestational [pregnancy-induced] hypertension without significant proteinuria, complicating the puerperium (principal)
CPT/HCPCS: G0378 ×2